=== PATIENT | male | born 2000 | race Asian ===

== ENCOUNTER 2024-02-01 11:00 | Emergency (ER) | payer SELFPAY ==
[~2024-02-01] VITALS: Ht 172.7 cm; Wt 85.3 kg
[2024-02-01 11:19] VITALS: BP_SYST 108; PULSE 98; RESP 16; TEMP 100.1; O2SAT 96
[2024-02-02] MEDS ORDERED: CEPH-585 PO (16:29)
== END 2024-02-01 15:37 | disposition left against medical advice (07) ==
LOC: ER 11:01
DX: S61.216A Laceration without foreign body of right little finger without damage to nail, initial encounter (principal); Z53.21 Procedure and treatment not carried out due to patient leaving prior to being seen by health care provider; W26.0XXA Contact with knife, initial encounter; Y93.89 Activity, other specified; Y92.89 Other specified places as the place of occurrence of the external cause; Y99.8 Other external cause status

== ENCOUNTER 2024-02-02 13:40 | Emergency (ER) | payer MEDICAID ==
[~2024-02-02] VITALS: Ht 172.7 cm; Wt 81.8 kg
[2024-02-02 14:01] VITALS: BP 129/42; PULSE 69; RESP 18; TEMP 98.8; O2SAT 97
[2024-02-02] MEDS: TETanus/Pertussis (Acell)/Diphther VAC/PF (Tdap-Adult) 0.5ml syringe IMVAC ONE (15:03)
[2024-02-02] MEDS: LIDOcaine 1% W/epiNEPHrine 1:100,000 20ml vial IJ ONE (15:41)
[2024-02-02] MEDS ORDERED: CEPH-585 PO (16:29)
== END 2024-02-02 16:48 | disposition home or self-care (01) ==
LOC: ER 13:40
DX: S61.411A Laceration without foreign body of right hand, initial encounter (principal); W26.0XXA Contact with knife, initial encounter; Y93.89 Activity, other specified; Y92.89 Other specified places as the place of occurrence of the external cause; Y99.8 Other external cause status
CPT/HCPCS: 12002; 73130; 90471; 90715; 99283; A6222; J7030; A6449

== ENCOUNTER 2024-02-12 15:19 | Emergency (ER) | payer MEDICAID ==
[~2024-02-12] VITALS: Ht 172.7 cm; Wt 80.0 kg
[~2024-02-12 15:19] MED LIST: CEPH-585 PO
[2024-02-12 15:32] VITALS: BP 116/56; PULSE 82; RESP 16; TEMP 99.2; O2SAT 97
== END 2024-02-12 16:13 | disposition home or self-care (01) ==
LOC: ER 15:20
DX: S61.411D Laceration without foreign body of right hand, subsequent encounter (principal); X58.XXXD Exposure to other specified factors, subsequent encounter; Y93.89 Activity, other specified; Y92.89 Other specified places as the place of occurrence of the external cause; Y99.8 Other external cause status
CPT/HCPCS: 99281

== ENCOUNTER 2025-01-30 04:00 | Emergency (ER) | payer SELFPAY ==
[~2025-01-30] VITALS: Ht 172.7 cm; Wt 87.3 kg
--- NOTE | 2025-01-30 06:10 | Physician Documentation ---
History of Present Illness ~ Chief Complaint: ETOH Stated Complaint: ETOH Time Seen by MD: 05:56 HPI 24-year-old male brought in by ambulance after being found unconscious in his car apparently intoxicated no further information available. Patient is sleeping comfortably [address] [place] without any obvious physical injuries. Drinking Duration: hours Altered Mental Status for: found down Ingested: ETOH Presents For: found sleeping History Of: no pertinent history Altered: moderate IF Injured, Onset: unknown Pain Severity: none Tetanus within 5 years?: Yes Associated Symptoms: denies symptoms Medication Reconciliation Allergies: Coded Allergies: No Known Allergies (Unverified , 01/30/25) Past Medical History Past Medical History: No Pertinent History Review of Systems All Other Systems at this time: Reviewed and Negative Physical Exam Vital Signs: Temperature: 97.3, Source: Oral, Heart Rate: 56, Respiratory Rate: 15, BP: 96/48, Pulse Oximetry: 100, Weight: 87.300 General Appearance: no apparent distress, somnolent Head: no evidence of injury Face: normal; No: swelling, ecchymosis, deformity, midface instability Eye Lid: normal inspection Respiratory: lungs clear Chest: normal inspection Cardiovascular: normal peripheral pulses Gastrointestinal: normal palpation Skin: warm/dry, normal color; No: cyanosis, diaphoresis Motor / Sensory: no motor deficit Thoughts/Hallucinations: normal thought pattern Progress Results/Orders Results/Orders Vital Signs 01/30/25 01/30/25 01/30/25 01/30/25 04:04 04:26 05:05 06:03 Temp 97.3 Pulse 51 51 58 56 Resp 14 14 12 15 B/P (MAP) 116/63 116/63 (80) 98/40 (59) 96/48 (64) Pulse Ox 98 97 97 100 Re-Evaluation Re-Evaluation : Re-Evaluation: Resolved, Improved Progress 7:05 a.m. patient re-evaluated he is sleeping comfortably but arousable, discussed disposition, he says he will call somebody to come give him a ride that is sober. He has no complaints. 7:15 a.m., patient will be discharged once a ride is available, he has no medical complaints. Medical Decision Making Differential Dx:Considerations: Intoxication - ETOH, Intoxication - other drug, Sub. Abuse -continuous, Dehydration Departure Disposition: 01 HOME / SELF CARE / HOMELESS Impression: Primary Impression: Alcoholic intoxication Condition: Improved Additional Instructions: Please do not drink in excess, follow up with your regular doctor for any medical concerns that you may have return to the ER for any emergencies. Referrals: NO PRIMARY CARE PROVIDER (PCP) Education Educated: Patient Educated regarding: diagnosis, treatment Signature Scribe Signature: None Attestation: Dictated by myself JACOB LOPEZ DO January 30, 2025 06:10
[2025-01-30 08:33] VITALS: BP 108/57; PULSE 89; RESP 14; TEMP 98.1; O2SAT 98
== END 2025-01-30 08:51 | disposition home or self-care (01) ==
LOC: ER 04:00
DX: F10.129 Alcohol abuse with intoxication, unspecified (principal); R44.3 Hallucinations, unspecified; Y90.9 Presence of alcohol in blood, level not specified
CPT/HCPCS: 99285